=== PATIENT | female | born 1965 | race Caucasian/White ===

== ENCOUNTER 2023-08-10 16:26 | Emergency (ER) | payer MEDICAID ==
[~2023-08-10] VITALS: Ht 160 cm; Wt 53.5 kg
[2023-08-10 16:32] VITALS: BP_SYST 115; PULSE 85; RESP 18; TEMP 98.3; O2SAT 98
[2023-08-10] MEDS ORDERED: KETOROLAC TROMETHAMINE 60 MG/2 ML VIAL IM ONE (17:15)
[2023-08-10] MEDS ORDERED: LIDOCAINE 1% 10 MG/ML, 20 ML MDV ID ONE (17:45)
[2023-08-10] MEDS ORDERED: IBUP-1969 PO (18:25)
[2023-08-10 18:40] VITALS: BP_SYST 106; PULSE 85; RESP 18; TEMP 98.3; O2SAT 98
== END 2023-08-10 18:40 | disposition home or self-care (01) ==
LOC: SED 16:26
DX: S01.81XA Laceration without foreign body of other part of head, initial encounter (principal); S50.11XA Contusion of right forearm, initial encounter; Z79.899 Other long term (current) drug therapy; W05.1XXA Fall from non-moving nonmotorized scooter, initial encounter; Y93.89 Activity, other specified; Y92.89 Other specified places as the place of occurrence of the external cause; Y99.8 Other external cause status
CPT/HCPCS: 99285; 70450; 73090; 70486; 76376; 12013; 96372; J1885